=== PATIENT | male | born 1995 | race Caucasian/White ===

== ENCOUNTER 2020-10-18 22:28 | Emergency (ER) | payer MEDICAID, SELFPAY ==
[2020-10-18 22:37] VITALS: BP 134/93; PULSE 93; RESP 18; TEMP 36.8; O2SAT 98; BMI 21.7
--- NOTE | 2020-10-18 22:44 | CT_ITS ---
PROCEDURE INFORMATION: Exam: CT Abdomen And Pelvis Without Contrast Exam date and time: 10/18/2020 10:44 PM Age: 25 years old Clinical indication: Abdominal pain; Patient HX: Right flank pain since 19:00 TECHNIQUE: Imaging protocol: Computed tomography of the abdomen and pelvis without contrast. Radiation optimization: All CT scans at this facility use at least one of these dose optimization techniques: automated exposure control; mA and/or kV adjustment per patient size (includes targeted exams where dose is matched to clinical indication); or iterative reconstruction. COMPARISON: No relevant prior studies available. FINDINGS: Lungs: Partially calcified 5 mm likely granuloma in the right lower lobe. No acute findings in the visualized lung bases. Liver: No acute findings. No mass. Gallbladder and bile ducts: No acute findings, calcified stones or ductal dilation. Pancreas: No acute findings, focal abnormality or ductal dilation. Spleen: No splenomegaly or focal abnormality. Adrenal glands: Normal. No mass. Kidneys and ureters: No obstructive uropathy. Stomach and bowel: No obstruction. No mucosal thickening. Appendix: No evidence of appendicitis. Intraperitoneal space: No free air. No significant fluid collection. Vasculature: No abdominal aortic aneurysm. Lymph nodes: No pathologically enlarged lymph nodes. Urinary bladder: Unremarkable as visualized. Reproductive: Unremarkable as visualized. Bones/joints: No acute fracture. Soft tissues: No acute findings. IMPRESSION: No acute findings in the abdomen or pelvis.
[2020-10-18 22:51] LABS: Microscopic, Urine URINE MICROSCOPIC (MICROSCOPIC)
[2020-10-18 22:58] LABS: Appearance,Urine CLEAR (Clear); Bilirubin,Urine Negative (Negative); Blood, Urine TRACE-I (Negative); Color,Urine YELLOW (Yellow); Glucose,Urine (UA) Negative (Negative); Ketones,Urine 1+ (Negative); Leukocyte Esterase,Urine Negative (Negative); Nitrate,Urine Negative (Negative); Protein,Urine 3+ (Negative); Specific Gravity, Urine >= 1.030 (1.005-1.030); Urobilinogen,Urine 0.2 EU/dl (0.2)
[2020-10-18 23:00] VITALS: BP 130/73; PULSE 77; O2SAT 95
[2020-10-18 23:03] LABS: Basophils % 0.3 % (0.1-2.0); Eosinophils # 0.1 K/mm3 (0.0-0.4); Eosinophils % 1.2 % (0.1-12.0); Hematocrit 47.2 % (42.0-52.0); Hemoglobin 16.3 g/dL (14.1-18.0); Lymphocytes # 2.1 K/mm3 (0.7-4.5); Lymphocytes % 18.6 % (10-50); Mean Corpuscular HGB Conc 34.4 g/dL (31.8-35.4); Mean Corpuscular Hemoglobin 29.9 pg (27.0-31.2); Mean Corpuscular Volume 86.9 fl (80-94); Mean Platelet Volume 8.3 fl (7.4-10.4); Monocytes # 0.7 K/mm3 (0.1-1.0); Monocytes % 6.6 % (1.7-9.3); Neutrophils # 8.1 K/mm3 (1.8-7.8); Neutrophils % 73.3 % (37.0-80.0); Platelet Count 185 K/mm3 (142-424); Red Blood Count 5.44 M/mm3 (4.60-6.20); Red Cell Distribution Width 13.7 % (11.5-17.5)
[2020-10-18 23:07] LABS: Alanine Aminotransferase 16 U/L (12-78); Albumin Level 5.1 g/dl (3.5-5.0); Albumin/Globulin Ratio 1.9 (1.1-1.8); Alkaline Phosphatase 56 U/L (38-126); Anion Gap 11.8 mEq/L (5-15); Aspartate Amino Transferase 27 U/L (17-59); Bilirubin,Total 0.7 mg/dl (0.2-1.3); Blood Urea Nitrogen 12 mg/dl (9-20); Calcium 9.3 mg/dl (8.4-10.2); Carbon Dioxide 24 mmol/L (22.0-30.0); Chloride 104 mmol/L (98-107); Creatinine Clearance Estimated 115 mL/min (50-200); Estimated Glomerular Filt Rate 103 ml/min (>60); GFR (African American) 124 ML/MIN (>60); Globulin 2.7 g/dL (1.3-3.2); Glucose 87 mg/dl (74-100); Potassium 3.8 mmoL/L (3.5-5.1); Sodium 136 mmol/L (136-145); Total Protein,Serum 7.8 g/dl (6.3-8.2)
[2020-10-18 23:13] LABS: C-Reactive Protein 1.8 mg/L (0-4)
[2020-10-18 23:15] LABS: Bacteria,Urine 1+ /lpf; Mucus,Urine 1+ /lpf; Squamous Epithelial Cell,Urine Occasional #/hpf (0-5)
[2020-10-18 23:26] LABS: Procalcitonin 0.035 ng/mL (0.0-2.0)
[2020-10-18 23:30] VITALS: BP 123/67; PULSE 79; RESP 16; O2SAT 97
[2020-10-18 23:31] LABS: Erythrocyte Sedimentation Rate 1 mm/hr (0-15)
[2020-10-19] VITALS: BP 131/66; PULSE 78; RESP 16; O2SAT 98
--- NOTE | 2020-10-19 00:17 | [facility].EDNVD ---
ED Disposition Clinical Impression: Abdominal pain Qualifiers: Abdominal location: epigastric Qualified Code(s): R10.13 - Epigastric pain GERD (gastroesophageal reflux disease) Qualifiers: Esophagitis presence: esophagitis presence not specified Qualified Code(s): K21.9 - Gastro-esophageal reflux disease without esophagitis Disposition: Home, Self-Care Condition on Discharge: Good Instructions: DI for Acute Abdominal Pain Additional Instructions: see pcp for follow up this week Referrals: Erica Stern APRN [Primary Care Provider] - - Critical Care Critical Care Time: No Attestation: On 10/18/20, the high probability of a clinically significant, sudden or life threatening deterioration of the following system(s) required my full and direct attention, intervention and personal management. The time I documented below is in addition to time spent performing reported procedures but includes the following listed in this critical care notation. Medical Decision Making - Medical Records Medical records reviewed: Yes: I reviewed the patient's medical records. - [place] Inquiry Pt receiving controlled substance: No Vital Signs: 10/18/20 22:37 Temperature 98.3 F Temperature Source Oral Pulse Rate [Right] 93 H Respiratory Rate 18 Blood Pressure [Right Arm] 134/93 H Blood Pressure Mean [Right Arm] 106 Blood Pressure Source [Right Arm] Automatic Cuff Blood Pressure Position [Right Arm] Sitting 02 Sat by Pulse Oximetry 98 Oxygen Delivery Method Room Air - Lab Data Lab results reviewed: Yes: I reviewed the patient's lab results. Lab Results 10/18/20 22:40: Urine Color Yellow, Urine Appearance Clear, Urine pH 6.0, Ur Specific [place] >= 1.030, Urine Protein 3+, Urine Glucose (UA) Negative, Urine Ketones 1+, Urine Blood Trace-i, Urine Nitrate Negative, Urine Bilirubin Negative, Urine Urobilinogen 0.2, Ur Leukocyte Esterase Negative, Urine RBC 3-5, Urine WBC 3-5, Ur Squamous Epith Cells Occasional, Urine Bacteria 1+, Urine Mucus 1+ 10/18/20 22:50: WBC 11.0 H, RBC 5.44, Hgb 16.3, Hct 47.2, MCV 86.9, MCH 29.9, MCHC 34.4, RDW 13.7, Plt Count 185, MPV 8.3, Neut % (Auto) 73.3, Lymph % (Auto) 18.6, Page % (Auto) 6.6, Eos % (Auto) 1.2, Baso % (Auto) 0.3, Neut # (Auto) 8.1 H, Lymph # (Auto) 2.1, Page # (Auto) 0.7, Eos # (Auto) 0.1, Baso # (Auto) 0.0, ESR 1 10/18/20 22:50: Sodium 136, Potassium 3.8, Chloride 104, Carbon Dioxide 24, Anion Gap 11.8, BUN 12, Creatinine 0.90, Estimated Creat Clear 115, Estimated GFR 103, Est GFR ( Amer) 124, Glucose 87, Calcium 9.3, Total Bilirubin 0.7, AST 27, ALT 16, Alkaline Phosphatase 56, C-Reactive Protein 1.8, Total Protein 7.8, Albumin 5.1 H, Globulin 2.7, Albumin/Globulin Ratio 1.9 H, Procalcitonin 0.035 Result diagrams: 10/18/20 22:50 10/18/20 22:50 Orders (Tests/Meds): ED MEDICATIONS Generic Name Dose Route Start Last Admin Trade Name Freq PRN Reason Stop Dose Admin Sodium Chloride 1,000 mls @ 999 mls/hr 10/18/20 22:45 10/18/20 22:57 Sod Chlor 0.9% 1000ml Bag IV 10/18/20 23:45 999 mls/hr .Q1H1M CHUNG Administration Discontinued Medications Generic Name Dose Route Start Last Admin Trade Name Freq PRN Reason Stop Dose Admin Ketorolac Tromethamine 30 mg 10/18/20 22:44 10/18/20 22:57 Ketorolac 30mg/Ml Vial IV 10/18/20 22:45 30 mg ONCE ONE Administration Ondansetron HCl 4 mg 10/18/20 22:44 10/18/20 22:57 Ondansetron 4mg/2ml Vial IV 10/18/20 22:45 4 mg ONCE ONE Administration - CT Data CT Scan: Abdomen, Pelvis Time Received: 00:[address] Reviewed: Yes: I have viewed the radiologist's interpretation Preliminary Findings: Normal/NAD (see report ) Medical Decision Narrative: improved after meds and has appt this week with pcp and has gerd sx and possible gb dis Nausea/Vomiting/Diarrhea HPI - General Chief complaint: Abdominal Pain Stated complaint: back pain Time Seen by Provider: 10/19/20 00:00 Mode of Arrival: Ambulat
[2020-10-19 00:29] VITALS: BP 129/63; PULSE 71; RESP 16; TEMP 36.6; O2SAT 96
== END 2020-10-19 00:37 | disposition home or self-care (01) ==
PROVIDERS: Emergency Provider Emergency Medicine; PCP Nurse Practitioner Family
DX: R10.11 Right upper quadrant pain (principal); R10.13 Epigastric pain; K21.9 Gastro-esophageal reflux disease without esophagitis
CPT/HCPCS: 74176; 80053; 81001; 84145; 85025; 85651; 86140; 96365; 96375; 99283; J2405

== ENCOUNTER → 2021-05-10 14:13 | Outpatient (CLI) | payer OTHER, SELFPAY | PROVIDERS: PCP Radiology Diagnostic Radiology; Visit Provider Nurse Practitioner | DX: Z20.822 Contact with and (suspected) exposure to COVID-19 (principal) | CPT/HCPCS: C9803; U0003; U0005 ==